=== PATIENT | female | born 2000 | race Caucasian/White ===

== ENCOUNTER 2024-06-01 15:13 | Emergency (ER) | payer MEDICAID, OTHER ==
[~2024-06-01] VITALS: Ht 170.2 cm; Wt 70.0 kg
[2024-06-01 15:15] VITALS: O2SAT 99
[2024-06-01] MEDS: MORPHINE SULFATE 4 MG/ML INJ (FOR IV/IM USE) IV ONE (16:00)
[2024-06-01] MEDS: KETOROLAC 30MG/ML VIAL IV ONE (16:00)
[2024-06-01] MEDS: FENTANYL CITRATE/PF 50MCG/ML 2ML VIAL IV ONE (17:22)
[2024-06-01] MEDS: LIDOCAINE HCL 1% 20ML VIAL INFIL ONE (17:22)
[2024-06-01 18:49] LABS: BASOPHILS % 0.3 % (0.0-2.0); EOSINOPHILS % 0.1 % (0.0-5.0); HEMATOCRIT. 38.9 % (36.0-48.0); HEMOGLOBIN. 13.4 g/dL (12.0-16.0); MEAN CORPUSCULAR HGB CONC 34.4 g/dL (31.0-37.0); MEAN CORPUSCULAR VOLUME 87.1 fL (81.0-99.0); MEAN PLATELET VOLUME 8.5 fl (7.4-10.4); MONOCYTES % 4.3 % (2.0-8.0); NEUTROPHILS % 81.3 % (40.0-76.0); PLATELET 284 x1000/uL (130-400); RED BLOOD CELL COUNT 4.47 mill/uL (4.2-5.4); RED CELL DISTRIBUTION WIDTH 13.1 % (11.6-14.6); WHITE BLOOD COUNT 11.9 x1000/uL (4.5-11.0)
[2024-06-01 18:51] LABS: CHLORIDE 106 mEq/L (98-107); POTASSIUM 3.8 mEq/L (3.5-5.1); SODIUM 140 mEq/L (136-145)
[2024-06-01 18:52] LABS: CARBON DIOXIDE 26 mEq/L (21-32)
[2024-06-01 18:53] LABS: CALCIUM 9.4 mg/dL (8.7-10.4)
[2024-06-01 18:57] LABS: CREATININE 0.6 mg/dL (0.6-1.0); GLUCOSE 110 mg/dL (70-105)
[2024-06-01 18:58] LABS: UREA NITROGEN BLOOD 16 mg/dL (9-23)
[2024-06-01 18:59] LABS: ALANINE AMINOTRANSFERASE 13 IU/L (10-49); ALBUMIN 4.2 g/dL (3.2-4.8); ASPARTATE AMINOTRANSFERASE 20 IU/L (<34)
[2024-06-01 19:00] LABS: BILIRUBIN TOTAL 0.5 mg/dL (0.1-1.0); PROTEIN TOTAL 7.2 g/dL (6.0-8.3)
[2024-06-01 19:07] LABS: HCG SCREEN NEGATIVE
[2024-06-01 21:24] VITALS: BP 126/70; PULSE 95; RESP 12; TEMP 36.8; O2SAT 100
== END 2024-06-01 21:56 | disposition short-term general hospital (02) ==
LOC: ER 15:13
DX: S82.892A Other fracture of left lower leg, initial encounter for closed fracture (principal); W01.0XXA Fall on same level from slipping, tripping and stumbling without subsequent striking against object, initial encounter; Y93.89 Activity, other specified; Y92.89 Other specified places as the place of occurrence of the external cause; Y99.8 Other external cause status
CPT/HCPCS: 28435; 80053; 84703; 85025; 36415; 73610; 73630; 99152; 99285; 96375; 96374; 73620; J1885; J3010; J3490; J2270; 27752